=== PATIENT | male | born 1955 | race Caucasian/White ===

== ENCOUNTER → 2024-01-19 13:59 | Outpatient (CLI) | payer MEDICARE, SELFPAY ==
--- NOTE | 2024-01-19 14:00 | DI.RAD.S_ITS ---
PROCEDURE: XR FOOT LT MIN 3V INDICATIONS: eval plantar fasciitis TECHNIQUE: 3 views of the foot were acquired. COMPARISON: None. FINDINGS: Bones: Non unified old appearing transverse fracture of the 5th metatarsal base appreciated. Joints: Mild degeneration of the 1st MTP and all interphalangeal joints seen. There is also mild tibiotalar degeneration. Soft tissues: Mild diffuse plantar soft tissue swelling noted. IMPRESSION: Nondisplaced old appearing ununited transverse fracture that 5th metatarsal base CIS degeneration Mild plantar soft tissue thickening which could indicate plantar fasciitis Dictated by: Perry Dudley M.D. on 01/20/2024 at 8:01 Approved by: Perry Dudley M.D. on 01/20/2024 at 8:03
--- NOTE | 2024-01-19 14:00 | DI.RAD.S_ITS ---
PROCEDURE: XR FOOT RT MIN 3V INDICATIONS: eval plantar fasciitis TECHNIQUE: 3 views of the foot were acquired. COMPARISON: [facility], CR, XR FOOT LT MIN 3V, 01/19/2024, 13:08. FINDINGS: Bones: Nondisplaced old ununited transverse fracture of the 5th metatarsal base appreciated . 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 Hammertoe deformities 2nd through 5th digits and pes cavus appreciated. Mild deformity posterior malleolus likely represents an old fracture . Joints: The joint spaces are normal in width and alignment without arthritic change. Soft tissues: No soft tissue abnormality. IMPRESSION: Chronic findings -as described Dictated by: Perry Dudley M.D. on 01/20/2024 at 8:07 Approved by: Perry Dudley M.D. on 01/20/2024 at 8:09
== END ==
PROVIDERS: PCP Family Medicine; Referring Provider Family Medicine; Visit Provider Family Medicine
DX: M72.2 Plantar fascial fibromatosis (principal); M20.41 Other hammer toe(s) (acquired), right foot; S92.354S Nondisplaced fracture of fifth metatarsal bone, right foot, sequela; S92.355S Nondisplaced fracture of fifth metatarsal bone, left foot, sequela
CPT/HCPCS: 73630

== ENCOUNTER → 2024-02-19 08:44 | Outpatient (CLI) | payer MEDICARE, SELFPAY ==
[2024-02-19 09:49] LABS: Add Manual Diff / Slide Review NO; Basophils Absolute Auto 0 /uL (0-100); Basophils Percent Auto 0.6 % (0-2); Eosinophils Absolute Auto 300 /uL (0-450); Eosinophils Percent Auto 5.7 % (2-4); Hematocrit 48.3 % (41-53); Hemoglobin 16.6 g/dL (13.5-17.5); Lymphocytes Absolute Auto 2000 /uL (1100-4500); Lymphocytes Percent Auto 33.8 % (25-40); Mean Corpuscular HGB Conc 34.5 % (30-36); Mean Corpuscular Hemoglobin 32.4 PG (26-34); Mean Corpuscular Volume 94.2 fL (80-100); Monocytes Absolute Auto 500 /uL (0-900); Neutrophils Absolute Auto 3100 /uL (1500-7000); Neutrophils Percent Auto 51.9 % (50-75); Platelet Count 160 X10^3/uL (150-400); Red Blood Cell Count 5.12 X10^6/uL (4.5-5.9); Red Cell Distribution Width 13.7 % (11.6-14.8); White Blood Cell Count 5.9 X10^3/uL (4.5-11.0)
[2024-02-19 11:21] LABS: Alanine Aminotransferase 37 IU/L (<50); Albumin Globulin Ratio 1.7 (1.0-2.8); Alkaline Phosphatase 62 U/L (38-126); Aspartate Aminotransferase 30 IU/L (17-59); BUN Creatinine Ratio 18.7 (6-22); Bilirubin Total 0.8 mg/dL (0.2-1.3); Blood Urea Nitrogen 17 mg/dL (9-20); Calcium 9.2 mg/dL (8.4-10.2); Carbon Dioxide 29 mmol/L (22-32); Chloride 103 mmol/L (98-107); Cholesterol 153 mg/dL (140-199); Estimated Glomerular Filt Rate > 60 mL/min (>60); Globulin 2.4 g/dL (1.7-4.1); Glucose 105 mg/dL (80-110); HDL Cholesterol 41 mg/dL (40-60); HEMOLYSIS < 15 (0-50); LDL Cholesterol Calculated 37 mg/dL (<100); Potassium 4.1 mmol/L (3.4-5.1); Sodium 138 mmol/L (137-145); Total Protein 6.4 g/dL (6.3-8.2); Triglycerides 377 mg/dL (35-150)
[2024-02-19 11:54] LABS: Prostate Specific Antigen Scrn 1.72 ng/mL (0.1-4.0)
== END ==
PROVIDERS: PCP Family Medicine; Referring Provider Family Medicine; Visit Provider Family Medicine
DX: E78.5 Hyperlipidemia, unspecified (principal); Z12.5 Encounter for screening for malignant neoplasm of prostate; I10 Essential (primary) hypertension
CPT/HCPCS: 36415; 80053; 80061; 85025; G0103

== ENCOUNTER → 2024-07-23 10:12 | Outpatient (CLI) | payer MEDICARE, SELFPAY ==
[2024-07-23 12:07] LABS: Cholesterol 144 mg/dL (140-199); HDL Cholesterol 34 mg/dL (40-60); LDL Cholesterol Calculated 40 mg/dL (<100); Triglycerides 348 mg/dL (35-150)
[2024-07-23 12:35] LABS: Prostate Specific Antigen Scrn 1.49 ng/mL (0.1-4.0)
[2024-07-23 12:36] LABS: Hemoglobin A1C% w Est Avg Glu 5.2 % (4.0-6.0)
== END ==
PROVIDERS: PCP Family Medicine; Referring Provider Family Medicine; Visit Provider Family Medicine
DX: R73.03 Prediabetes (principal); E78.5 Hyperlipidemia, unspecified; Z12.5 Encounter for screening for malignant neoplasm of prostate; I10 Essential (primary) hypertension
CPT/HCPCS: 36415; 80061; 83036; G0103

== ENCOUNTER → 2024-09-07 08:03 | Outpatient (CLI) | payer MEDICARE, SELFPAY ==
[2024-09-07 10:38] LABS: Cholesterol 65 mg/dL (140-199); HDL Cholesterol 41 mg/dL (40-60); LDL Cholesterol Calculated -1 mg/dL (<100); Triglycerides 123 mg/dL (35-150)
== END ==
PROVIDERS: PCP Family Medicine; Referring Provider Internal Medicine Cardiovascular Disease; Visit Provider Internal Medicine Cardiovascular Disease
DX: E78.00 Pure hypercholesterolemia, unspecified (principal)
CPT/HCPCS: 36415; 80061

== ENCOUNTER → 2024-10-26 12:47 | Outpatient (CLI) | payer MEDICARE, SELFPAY ==
--- NOTE | 2024-10-27 10:57 | DIET.OUTPTC ---
Dietary Outpatient Consult Consult Date: 10/26/24 Assessment:?69 y M referred to dietitian for Pure hypercholesterolemia, unspecified PMH of CAD and cardiac stents, hx of HTN and hyperlipidemia both now well-controlled. [employer] has suggested him to see a dietitian as part of care team. Also going to cardio rehab 3x/wk and going through the nutrition classes there. Has lost 3-4 lb since start. Would like to start biking again now that it is summer. Pt has family member that was a dietitian, very knowledgeable on nutrition related topics. Started to be mindful of dinner portion sizes. GI symptoms: denies D/C, BM every other day, some nausea r/t vertigo - has medication that sufficiently helps this Diet Recall: B-toast with pb (2 sl whole wheat) w/ banana or oatmeal with water and fruit or yogurt and granola with black coffee L-leftovers w/ veg, sandwich with pb or leftover meat on 2 sl whole grain bread with fruit S-[employer] energy bar D-lean protein, vegx2 servings, portioned carb or tacos/casseroles dessert occasionally in moderation 2x/month out to eat EtOH drink 1 per day Goes on cruises 2x/yr for 1-2 weeks No sugar sweetened beverages Ht:?6ft? Wt:?240 lb? BMI:?32? Activity:cardio rehab 3x/wk Pertinent Labs: 09/07/24 lipid panel WNL (except chol 65L), A1c 07/23/24 5.2% Nutrition Diagnosis:? Decreased nutrient needs (sodium, saturated fat) r/t cardiovascular risk factors as evidenced by history of CAD, HTN, and hypercholesterolemia Interventions:? Discussed and provided appropriate resources on the following: -Provided information on dietary styles of eating that are associated with reduced CVD risk such as DASH and MeD -Reviewed diet recall in comparison to these diets -Physical activity -Sodium intake and saturated fat intake, product comparison - i.e. salad dressing [employer] vs boathouse -[place] 3 fatty acids, handout provided -Label reading Goals: -Continue to monitor dinner portion sizes, denies feeling hungry after dinner with reduced portions -Add biking 2x/wk -Fatty omega 3 fish 2x/wk 4 oz serving Pt has made many dietary changes already, encouraged continuation with current patterns, confident in direction heading, will reach out for f/u as needed. Will also get 1 more nutrition educ class through cardio rehab. Monitoring/Evaluations:? F/u PRN Electronically Signed by: Lara Espinoza Clinical Dietitian [address] [id number]
== END ==
LOC: DIET 12:47
PROVIDERS: PCP Family Medicine; Referring Provider Family Medicine
DX: E78.00 Pure hypercholesterolemia, unspecified (principal); Z71.3 Dietary counseling and surveillance; I25.10 Atherosclerotic heart disease of native coronary artery without angina pectoris; Z95.5 Presence of coronary angioplasty implant and graft; Z68.32 Body mass index [BMI] 32.0-32.9, adult; I10 Essential (primary) hypertension
CPT/HCPCS: 97802

== ENCOUNTER → 2024-11-25 07:41 | Outpatient (CLI) | payer MEDICARE, SELFPAY ==
[2024-11-25 08:54] LABS: Cholesterol 77 mg/dL (140-199); HDL Cholesterol 38 mg/dL (40-60); Triglycerides 182 mg/dL (35-150)
== END ==
PROVIDERS: PCP Family Medicine; Referring Provider Family Medicine; Visit Provider Pharmacist
DX: E78.00 Pure hypercholesterolemia, unspecified (principal)
CPT/HCPCS: 36415; 80061

== ENCOUNTER 2024-12-29 08:30 | Outpatient (RCR) | payer MEDICARE, SELFPAY | END 2024-12-29 10:30 | LOC: CAR 08:30 | PROVIDERS: PCP Family Medicine | DX: Z95.2 Presence of prosthetic heart valve (principal) | CPT/HCPCS: 93798 ==

== ENCOUNTER → 2025-03-28 07:22 | Outpatient (CLI) | payer MEDICARE, SELFPAY ==
[2025-03-28 08:03] LABS: Cholesterol 84 mg/dL (140-199); HDL Cholesterol 38 mg/dL (40-60); Triglycerides 327 mg/dL (35-150)
== END ==
PROVIDERS: PCP Family Medicine; Referring Provider Family Medicine; Visit Provider Pharmacist
DX: E78.00 Pure hypercholesterolemia, unspecified (principal)
CPT/HCPCS: 36415; 80061